=== PATIENT | female | born 1955 | race Caucasian/White ===

== ENCOUNTER 2017-10-02 11:17 | Inpatient (IN) | payer OTHER ==
[~2017-10-02] VITALS: Ht 167.6 cm; Wt 49.4 kg
[2017-10-02 12:38] LABS: BASOPHILS # (AUTO) 0.1 K/uL (0.0-8.0); BASOPHILS % (AUTO) 2.2 % (0.0-2.0); EOSINOPHILS # (AUTO) 0.2 K/uL (0.0-0.7); EOSINOPHILS % (AUTO) 2.9 % (0.0-7.0); HEMATOCRIT 40.2 % (31.2-41.9); HEMOGLOBIN 13.1 g/dL (10.9-14.3); LYMPHOCYTES # (AUTO) 1.9 K/uL (20.0-40.0); LYMPHOCYTES % (AUTO) 29.7 % (20.5-51.5); MEAN CORPUSCULAR HEMOGLOBIN 28.8 uug (24.7-32.8); MEAN CORPUSCULAR HGB CONC 33 g/dL (32.3-35.6); MEAN CORPUSCULAR VOLUME 88.2 fL (75.5-95.3); MONOCYTES # (AUTO) 0.5 K/uL (2.0-10.0); MONOCYTES % (AUTO) 8.5 % (0.0-11.0); NEUTROPHILS # (AUTO) 3.6 K/uL (1.8-8.9); NEUTROPHILS % (AUTO) 56.7 % (38.5-71.5); PLATELET COUNT (AUTO) 226 K/uL (179-408); RED BLOOD CELL COUNT(AUTO) 4.56 MIL/uL (3.63-4.92); WHITE BLOOD COUNT (AUTO) 6.4 K/uL (3.8-11.8)
[2017-10-02 12:52] LABS: CARBON DIOXIDE 29 mmol/L (21-32); CHLORIDE 110 mmol/L (98-107); CREATININE 0.8 mg/dL (0.6-1.3); GLUCOSE 85 mg/dL (74-106); POTASSIUM 4.1 mmol/L (3.5-5.1); UREA NITROGEN, BLOOD 15 mg/dL (7-18)
[2017-10-02 12:56] LABS: ACETAMINOPHEN < 2.0 ug/mL (10-30); ALANINE AMINOTRANSFERASE 26 U/L (14-59); ALKALINE PHOSPHATASE 139 U/L (50-136); ASPARTATE AMINOTRANSFERASE 24 U/L (15-37); BILIRUBIN,DIRECT 0.1 mg/dL (0.0-0.2); BILIRUBIN,TOTAL 0.6 mg/dL (0.2-1.0); TOTAL PROTEIN, SERUM 6.5 g/dL (6.4-8.2)
[2017-10-02 13:13] LABS: ETHANOL < 3 MG/DL (0-0)
[2017-10-02 14:00] LABS: *BILIRUBIN,URIN NEGATIVE (NEGATIVE); *BLOOD, URINE NEGATIVE (NEGATIVE); *CLARITY,URINE CLEAR (CLEAR); *COLOR,URINE YELLOW (YELLOW); *KETONES,URINE NEGATIVE (NEGATIVE); *PROTEIN,URINE NEGATIVE (NEGATIVE); *UROBILINOGEN,URINE 0.2 E.U./dl (NORMAL); LEUKOCYTE ESTERASE ,URINE TRACE (NEGATIVE); NITRITE, URINE NEGATIVE (NEGATIVE); UGLUCOSE NEGATIVE (NEGATIVE)
[2017-10-02 14:02] LABS: BACTERIA,URINE NONE SEEN /HPF (NONE SEEN); RBC,URINE 0-3 /HPF (0-3); SQUAMOUS EPITHELIAL CELL,UR FEW /HPF (NONE SEEN); WBC,URINE 0-3 /HPF (0-3)
--- NOTE | 2017-10-02 14:08 | NUR ---
LEVON COPMPLETED, SBAR REPORT TO SANTOS RN-MHU, MRSA-NARES ORDERED-SENT. PT TRANSPORTED VIA [facility] TO RM 140B.
[2017-10-02 14:12] LABS: *AMPHETAMINE, URINE NEGATIVE (NEGATIVE); *BARBITURATE, URINE NEGATIVE (NEGATIVE); *CANNABINOID, URINE POSITIVE (NEGATIVE); *COCCAINE, URINE NEGATIVE (NEGATIVE); *OPIATE, URINE NEGATIVE (NEGATIVE); *PHENCYCLIDINE SCREEN,URINE NEGATIVE (NEGATIVE)
[2017-10-02] MEDS ORDERED: MAG HYDROX/AL HYDROX/SIMETH 30 ML LIQUID UDC PO PRN (14:45)
[2017-10-02] MEDS ORDERED: MAGNESIUM HYDROXIDE 30 ML LIQUID UDC PO PRN (14:45)
[2017-10-02] MEDS ORDERED: TEMAZEPAM 7.5 MG CAPSULE PO PRN (14:45)
--- NOTE | 2017-10-02 15:00 | NUR ---
1410 ADMITTED A 62 YEAR OLD FROM ER PER KAYKAY A FEMALE , ALERT AND OX2. PATIENT PLACED ON 5150 FOR DTS;DTO AND GD . PATIENT JIMENA ONE OF THE PUBLIC AND THREW BATTERIES ON HER. ALSO PATIENT TALKING TO SELF AND CLAIMED THAT SHE IS A WITCH. UPON ARRIVAL OF THE UNIT, PATIENT VERY ANGRY ,YELLING AND UNCOOPERATIVE WHEN QUESTIONS ASKED. REFUSED TO ANSWERS QUESTIONS AND REFUSED TO BE BODY CHECK FOR ANY SKIN PROBLEM. PATIENT VERY UNTIDY AND MALODOROUS- ASSISTED FOR SHOWER AND FRESH GOWN PROVIDED. PATIENT WENT TO HER ROOM AND LYING IN BED. V/S TAKEN WNL. PSYCHIATRIST NOTIFIED ABOUT THE ADMISSION WITH ORDERS CARRIED OUT.
[2017-10-02 15:35] VITALS: BP 138/82
[2017-10-03 07:11] LABS: BILIRUBIN,TOTAL 0.4 mg/dL (0.2-1.0); CREATININE 0.8 mg/dL (0.6-1.3); POTASSIUM 3.8 mmol/L (3.5-5.1); TOTAL PROTEIN, SERUM 6.4 g/dL (6.4-8.2)
[2017-10-03 07:30] VITALS: BP 116/78
[2017-10-03] MEDS ORDERED: diphenhydrAMINE 50 MG/1 ML VIAL IM STA (07:50)
[2017-10-03] MEDS ORDERED: HALOPERIDOL LACTATE 5 MG/1 ML VIAL IM STA (07:50)
[2017-10-03] MEDS ORDERED: LORAZEPAM 2 MG/1 ML VIAL IM STA (07:50)
--- NOTE | 2017-10-03 08:10 | NUR ---
PATIENT WAS NOTED YELLING, SCREAMING, CURSING, BELLIGERENT, BOTHERING AND SCARING PATIENT IN THE UNIT, UNABLE TO BE REDIRECTED AND UNABLE TO CFS. DR BENNETT WAS NOTIFY AND NEW ORDERS OBTAINED TO ADMINISTER ATIVAN 2MG IM, HALDOL 5MG IM; AND BENADRYL 25MG IM. STAT ONE TIME ORDERS. ORDERS NOTED AND CARRIED OUT. WILL CONTINUE TO MONITOR CLOSELY.
[2017-10-03 08:16] LABS: THYROID STIMULATING HORMONE 1.796 mIU/mL (0.358-3.740)
[2017-10-03] MEDS: HALOPERIDOL 5 MG TABLET PO SCH ×3 (09:00→16:50)
[2017-10-03] MEDS: BENZTROPINE MESYLATE 1 MG TABLET PO SCH ×3 (09:00→16:50)
[2017-10-03 15:20] VITALS: BP 86/56
--- NOTE | 2017-10-03 18:32 | NUR ---
patient has been sleeping all shift arousable for meals no outburts or interaction , still guarded and delusional
--- NOTE | 2017-10-03 20:00 | NUR ---
RECEIVED PATIENT IN HER ROOM IN BED ASLEEP. SHE IS AROUSABLE TO NAME AND LIGHT TOUCH. HOWEVER PT REFUSED TO ANSWER ANY QUESTION AND REFUSED ASSESSMENT. PT DOES NOT HAVE ANY SCHEDULED QHS MEDICATIONS. SAFETY WAS EMPHASIS WILL CONTINUE TO MONITOR CLOSELY.
--- NOTE | 2017-10-03 20:05 | NUR ---
PATIENT REFUSED VITAL SIGNS. MULTIPLE REDIRECTION GIVEN, YET INEFFECTIVE. WILL CONTINUE TO MONITOR CLOSELY.
--- NOTE | 2017-10-04 04:15 | NUR ---
PATIENT GOT UP TO GO TO THE BATHROOM YELLING AND CURSING, SHE THEN SLAMMED THE BATHROOM DOOR AND CONTINUE CURSING, "MF, WHAT ARE YOU LOOKING AT, YOU ALL MF". PATIENT WAS REDIRECTED AND WHEN BACK TO BED. WILL CONTINUE TO MONITOR CLOSELY.
--- NOTE | 2017-10-04 07:00 | NUR ---
RECEIVED PATIENT ON BED, AWAKE. WHEN APPROACHED WILL BEGIN CURSING AND YELLING AT STAFF. RESTLESSNESS AND AGITATION NOTED. NON COMPLIANT WITH MEDICATION PER CHURCH MUSICIAN. HAS A TENDENCY TO BE COMBATIVE. SAFETY PRECAUTIONS OBSERVED AT ALLTIMES. COMFORT MEASURES PROVIDED. WILL CONTINUE TO MONITOR CLOSELY.
[2017-10-04 07:30] VITALS: BP 118/78
[2017-10-04] MEDS: HALOPERIDOL 5 MG TABLET PO SCH ×3 (08:40→17:01)
[2017-10-04] MEDS: LORAZEPAM 1 MG TABLET PO PRN (08:40)
[2017-10-04] MEDS: BENZTROPINE MESYLATE 1 MG TABLET PO SCH ×3 (08:40→17:01)
[2017-10-04] MEDS: diphenhydrAMINE 50 MG/1 ML VIAL IM ONE ×2 (09:23→09:37)
[2017-10-04] MEDS: LORAZEPAM 2 MG/1 ML VIAL IM ONE ×2 (09:23→09:37)
[2017-10-04] MEDS: HALOPERIDOL LACTATE 5 MG/1 ML VIAL IM ONE ×2 (09:23→09:37)
--- NOTE | 2017-10-04 09:38 | NUR ---
ATIVAN 2MG INJ/BENADRYL 25MG INJ/ HALDOL INJ WAS WASTED BECAUSE ALL 3 MEDICATIONS WERE MIXED IN ONE SYRINGE, CALLED PHARMACY, SAID THAT ATIVAN AND BENADRYL WERE NOT COMPATIBLE. MEDICATIONS NOT GIVEN, WILL ENTER NEW ORDER.
[2017-10-04] MEDS ORDERED: diphenhydrAMINE 50 MG/1 ML VIAL IM ONE (09:45)
[2017-10-04] MEDS ORDERED: LORAZEPAM 2 MG/1 ML VIAL IM ONE (09:45)
[2017-10-04] MEDS ORDERED: HALOPERIDOL LACTATE 5 MG/1 ML VIAL IM ONE (09:45)
--- NOTE | 2017-10-04 10:15 | NUR ---
PATIENT WAS NOTED YELLING AND CURSING AT STAFF, THROWING THINGS IN ROOM. UNABLE TO REDIRECT PATIENT, CONTINUES TO YELL AND CURSE. NOTIFIED MD, OBTAINED ORDERS TO ADMINISTER ATIVAN 2MG IM, HALDOL 5MG IM; AND BENADRYL 25MG IM. STAT ONE TIME ORDERS. ORDERS NOTED AND CARRIED OUT. IM SHOT GIVEN ON RIGHT BUTTOCK, WELL TOLERATED, NO ADVERSE REACTIONS NOTED. WILL CONTINUE TO MONITOR CLOSELY
--- NOTE | 2017-10-04 10:29 | NUR ---
UR Note: JAVON faxed patient's clinicals to PAU Moncada [[phone] FAX [phone]] at [facility]. Awaiting authorization. JAVON will continue to follow up.
[2017-10-04 14:37] VITALS: BP 98/62
--- NOTE | 2017-10-04 15:45 | NUR ---
UR Note: JAVON spoke with PAU Rosado at [facility] [[phone]] who stated patient has been authorized through 10/06. JAVON will follow up with Ashlee on 10/06 for review.
--- NOTE | 2017-10-04 17:35 | NUR ---
OFFERED 1700 MEDICATION; HALDOL AND CONGENTIN, PATIENT REFUSED TO TAKE IT AND BEGAN CURSING AND YELLING, "GET THE FUCK OUT OF HERE, I DON'T TAKE ANY MEDICATIONS" THEN WENT BACK TO SLEEP. WILL CONTINUE TO MONITOR CLOSELY
--- NOTE | 2017-10-04 17:50 | NUR ---
PATIENT IN ROOM EATING DINNER, NO ACUTE DISTRESS NOTED. PATIENT BECOMES HOSTILE; YELLING AND CURSING, WHEN APPROACHED. REFUSED 1700 MEDICATION. DIFFICULT TO REDIRECT NON COMPLIANT WITH CARE AT THIS TIME. ALL NEEDS ATTENDED AND ANTICIPATED. WILL CONTINUE TO MONITOR
--- NOTE | 2017-10-04 18:15 | NUR ---
reoffered 1700 medication; congentin and haldol, with Dr. Craft. Patient took medication. will continue to monitor closely.
[2017-10-04 20:00] VITALS: BP 94/57
--- NOTE | 2017-10-04 22:04 | NUR ---
RECEIVED Pt IN BED SLEEPING, REQUIRED MULTIPLE EFFORTS TO WAKE UP Pt. Pt WAS A/O TO NAME BUT REFUSED TO ANSWER OTHER QUESTIONS DURING ASSESSMENT. Pt WAS EASILY AGITATED AND AND DID NOT WANT TO SPEAK TO NURSE. Pt DENIED S/I, UNABLE TO HAVE Pt AGREE TO CFS DUE TO INCREASED AGITATION AND REFUSAL TO ANSWER FURTHER QUESTIONS. Pt WENT BACK TO SLEEP, NO DISTRESS NOTED BY NURSE.
[2017-10-05] MEDS: LORAZEPAM 1 MG TABLET PO PRN ×2 (00:05→23:41)
[2017-10-05] MEDS: ACETAMINOPHEN 325 MG TABLET PO PRN ×2 (00:05→23:46)
--- NOTE | 2017-10-05 00:25 | NUR ---
Pt WOKE UP AT AROUND 2300 AND WENT TO DAY ROOM. NURSE FOLLOWED TO DO MORE THROUGH ASSESSMENT. Pt IS A/O X 2, NOT TO TIME OR EVENT. Pt WAS ABLE TO HOLD CONVERSATION WITH NURSE BUT WAS TANGENTIAL IN SPEECH AND PRESENTED DELUSIONS. Pt WAS NOTED SAYING, "I DON'T HAVE FAMILY BUT I HAVE FRIENDS WHO ARE SATAN WORSHIPPERS." Pt BEGAN ACCUSING OTHER PATIENTS AND NURSE OF BEING SATAN WORSHIPPERS. NOTED ANXIETY AND RESTLESSNESS. Pt WAS OFFERED SNACKS BY NURSE TO HELP HER CALM DOWN. Pt WAS OFFERED AND GIVEN ATIVAN AND TYLENOL PRN AFTERWARDS. Pt CONTINUED TO STAY IN DAY ROOM TO WATCH TV AFTER FINISHING HER SNACKS BUT WENT BACK TO BED IMMEDIATELY. NO FURTHER AGGRESSIVE BEHAVIORS NOTED SO FAR.
--- NOTE | 2017-10-05 07:00 | NUR ---
RECEIVED REPORT FROM PILE DRIVER OPERATOR BARGE MOUNTED. PATIENT IN DAY ROOM, NO ACUTE DISTRESS NOTED. PER PILE DRIVER OPERATOR BARGE MOUNTED, PATIENT CONTINUES TO BE DELUSIONAL TALKING TO OTHER PATIENTS ABOUT "SATAN RASTAFARIAN", ATIVAN AND TYLENOL PRN WAS GIVEN LAST NIGHT BY ERIC ALEMAN. PATIENT SLEPT THOROUGH THE NIGHT. COMPLIANT WITH MEDICATIONS. COMFORT MEASURES PROVIDED. WILL CONTINUE TO MONITOR CLOSELY.
[2017-10-05 08:00] VITALS: BP 101/72
[2017-10-05] MEDS: HALOPERIDOL 5 MG TABLET PO SCH ×4 (08:06→20:14)
[2017-10-05] MEDS: BENZTROPINE MESYLATE 1 MG TABLET PO SCH ×4 (08:06→20:14)
--- NOTE | 2017-10-05 11:12 | NUR ---
PATIENT NOTED TO BE COUGHING A LOT, INFORMED DR. ELAINE, AWAITING RESPONSE. WILL CONTINUE TO MONITOR CLOSELY.
[2017-10-05] MEDS ORDERED: GUAIFENESIN SUGAR FREE 100 MG/5 ML UDC PO PRN (11:30)
--- NOTE | 2017-10-05 15:48 | NUR ---
Initial DC Plan: Patient is currently homeless and states she does not have any income. She has no family or friends to contact. SW will follow up with MD and patient to discuss most appropriate discharge plans. Patient will be provided a substance abuse intervention. SW will form a safe and proper discharge.
--- NOTE | 2017-10-05 16:07 | NUR ---
Firearms Reporting: JAVON submitted Mental Health Report to [facility] on 10/05.
[2017-10-05 16:20] VITALS: BP 109/69
--- NOTE | 2017-10-05 17:53 | NUR ---
PATIENT IN DAY ROOM EATING DINNER. NO ACUTE DISTRESS NOTED. EPISODE OF YELLING/AGITATION X 1, DR. BENNETT AWARE. OTHERWISE HAS BEEN COMPLIANT WITH MEDICATION. ALL NEEDS ATTENDED AND ANTICIPATED. WILL CONTINUE TO MONITOR CLOSELY.
[2017-10-05 20:00] VITALS: BP 117/72
--- NOTE | 2017-10-05 23:42 | NUR ---
GPS: PATIENT C/O ANXIETY. ATIVAN 1 MG PO GIVEN.
--- NOTE | 2017-10-05 23:46 | NUR ---
GPS: PATIENT C/O GEN: PAIN. [id number] MG PO GIVEN. PO
--- NOTE | 2017-10-06 00:42 | NUR ---
GPS: PATIENT IS CALM NOW. PRN EFFECTIVE FOR ANXIETY.
--- NOTE | 2017-10-06 00:46 | NUR ---
GPS: PATIENT IS RESTING QUIETLY. PRN EFFECTIVE FOR PAIN.
--- NOTE | 2017-10-06 06:33 | NUR ---
GPS: remain cooperative with medications and care. patient noted talking to her self.showered this morning. anxiety x1 through the night prn given and effective. slept 4:30 hrs through the night. assisted with adl's.continue plan of care.
[2017-10-06 07:30] VITALS: BP 100/65
--- NOTE | 2017-10-06 07:30 | NUR ---
RECEIVED REPORT FROM DRAWING TENDER. PATIENT IN DAY ROOM, NO ACUTE DISTRESS NOTED. , PATIENT CONTINUES TO BE DELUSIONAL TALKING TO OTHER PATIENTS ABOUT "SATAN ORTHODOX", PT. COMPLIANT WITH MEDICATIONS. COMFORT MEASURES PROVIDED. WILL CONTINUE TO MONITOR CLOSELY.
[2017-10-06] MEDS: HALOPERIDOL 5 MG TABLET PO SCH ×3 (08:12→21:14)
[2017-10-06] MEDS: BENZTROPINE MESYLATE 1 MG TABLET PO SCH ×3 (08:12→21:14)
--- NOTE | 2017-10-06 10:31 | NUR ---
UR Note: JAVON spoke with PAU Rosado at [facility] [[phone]] who stated patient has been authorized through 10/09. JAVON will follow up with Ashlee on 10/09 for review.
[2017-10-06 14:58] VITALS: BP 119/69
[2017-10-06 20:01] VITALS: BP 99/65
--- NOTE | 2017-10-06 21:40 | NUR ---
RECEIVED Pt IN DAY ROOM WATCHING TV, REFUSED TO ANSWER MANY QUESTIONS AND BECAME AGITATED WHEN NURSE WAS TRYING TO ADMINISTER NIGHT MEDS. AFTER MANY ENCOURAGEMENT, Pt ANGRILY TOOK MEDS AND TOLD NURSE TO "GET THE FUCK OUT OF MY FACE AND LEAVE!" WILL MONITOR Pt BEHAVIOR CLOSELY THROUGHOUT THE SHIFT.
[2017-10-07 07:30] VITALS: BP 106/65
--- NOTE | 2017-10-07 07:30 | NUR ---
Shift report given by nightshift RN. Pt in fair condition. Noted with agitation and verbally aggressive behavior during noc shift. In bed at this time, asleep but easily arousable to name. Appears comfortable. No acute distress noted. Will continue to monitor for change.
[2017-10-07] MEDS: BENZTROPINE MESYLATE 1 MG TABLET PO SCH ×3 (08:40→21:04)
[2017-10-07] MEDS: HALOPERIDOL 5 MG TABLET PO SCH ×3 (08:40→21:04)
[2017-10-07 16:41] VITALS: BP 98/71
--- NOTE | 2017-10-07 18:21 | NUR ---
Pt remained in fair condition during shift. Continues to be isolative at times. Attends activities of choice but does not interact with peers. Irritable when approached. Denies SI/HI, CFS. Denies pain. Took all due meds. Afebrile. Able to provide self care without prompting needed. Continent of B&B with BRP. All needs met at this time. Will continue to monitor for change.
[2017-10-07 20:30] VITALS: BP 107/51
--- NOTE | 2017-10-08 02:32 | NUR ---
Received in dayroom watching TV at beginning of shift. Compliant with meds. No signs of agitation or restlessness at that time. Back in the room and fall asleep. Denies any pain nor any discomfort. Isolative. No behavioral issues noted so far. Will monitor patient. Making needs known. Continent of bowel and bladder.
[2017-10-08 07:30] VITALS: BP 110/68
--- NOTE | 2017-10-08 07:30 | NUR ---
GPS: Shift report given by nightshift RN. No significant change in condition during noc shift. Rec'd pt awake, watching television in the dayroom. In no acute distress noted. Denies pain. Pt stated her night was fine. All needs met at this time. Will continue to monitor for change.
[2017-10-08] MEDS: BENZTROPINE MESYLATE 1 MG TABLET PO SCH ×3 (08:14→20:19)
[2017-10-08] MEDS: HALOPERIDOL 5 MG TABLET PO SCH ×3 (08:15→20:19)
[2017-10-08 15:35] VITALS: BP 104/69
[2017-10-08] MEDS: LORAZEPAM 1 MG TABLET PO PRN (16:40)
[2017-10-08] MEDS: ACETAMINOPHEN 325 MG TABLET PO PRN (16:40)
[2017-10-08 22:22] VITALS: BP 116/72
--- NOTE | 2017-10-09 06:08 | NUR ---
GPS: REMAIN CALM AND COOPERATIVE WITH MEDICATIONS AND CARE. NO AGITATION NOTED AT THIS TIME. AMBULATE WITH STEADY GAIT.ABLE TO CARE HER SELF.SLEPT 6 HRS THROUGH THE NIGHT. CONTINUE PLAN OF CARE.
--- NOTE | 2017-10-09 07:18 | NUR ---
GPS: Shift report given by nightshift RN. Pt without significant change in condition during noc shift. Rec'd pt awake, in the dayroom watching TV. Does not appear to be responding to internal stimuli. In no acute distress noted. Will continue to monitor for change.
[2017-10-09 07:30] VITALS: BP 99/66
[2017-10-09] MEDS: BENZTROPINE MESYLATE 1 MG TABLET PO SCH ×4 (08:21→20:15)
[2017-10-09] MEDS: HALOPERIDOL 5 MG TABLET PO SCH ×4 (08:21→20:15)
--- NOTE | 2017-10-09 14:41 | NUR ---
UR Note: JAVON faxed patient's clinicals to PAU Moncada [[phone] FAX [phone]] at [facility]. Awaiting authorization. JAVON will continue to follow up.
[2017-10-09 15:35] VITALS: BP 113/71
--- NOTE | 2017-10-09 18:25 | NUR ---
GPS: Pt remained in fair condition during shift. No significant change in condition noted. Pt continues to respond to internal stimuli. Refused noon medications. Pt with delusion that meds were just given to her 5mins prior to offering it to her. Attempted to reorient and offer meds x3 but became more agitated with each attempt. Denies pain. In no acute distress noted. Will continue to monitor for change.
[2017-10-09 20:23] VITALS: BP 119/74
[2017-10-09] MEDS: LORAZEPAM 1 MG TABLET PO PRN (21:10)
--- NOTE | 2017-10-09 22:10 | NUR ---
RECEIVED Pt IN DAY ROOM WATCHING TV, RESPONDS TO NAME BUT FORGETFUL AND TANGENTIAL IN SPEECH, UNABLE TO PROPERLY HOLD CONVERSATION AND KEEPS CHANGING TOPIC WHEN TALKING. Pt WAS COMPLIANT WITH NIGHT MEDS. Pt WAS NOTED ANXIOUS AND YELLING AT INANIMATE OBJECTS. WAS OFFERED AND GIVEN ATIVAN PO PRN FOR ANXIETY AND AGITATION. WILL CLOSELY MONITOR Pt BEHAVIOR THROUGHOUT SHIFT.
--- NOTE | 2017-10-10 06:48 | NUR ---
Pt SLEPT WELL THROUGHOUT THE NIGHT, NO NOTED DISTRESS, NO AGGRESSIVE BEHAVIOR NOTED. Pt IS NOW AWAKE AND WATCHING TV IN THE DAY ROOM. IN STABLE CONDITION.
[2017-10-10 07:30] VITALS: BP 94/63
[2017-10-10] MEDS: LORAZEPAM 1 MG TABLET PO PRN (07:59)
[2017-10-10] MEDS: BENZTROPINE MESYLATE 1 MG TABLET PO SCH ×3 (07:59→20:17)
[2017-10-10] MEDS: HALOPERIDOL 5 MG TABLET PO SCH ×3 (08:00→20:17)
[2017-10-10 15:27] VITALS: BP 113/78
--- NOTE | 2017-10-10 20:30 | NUR ---
RECEIVED PATIENT IN HER ROOM; HOWEVER, SHE WAS ALSO NOTED PACING THE HALLWAY. SHE IS NOTED A/O X 1, POOR INSIGHT, POOR JUDGMENT, WITHDRAWN, LOW MOOD. UPON INTERVIEW, SHE STATED, "I DON'T WANT TO TALK NOW". PATIENT IS COMPLIANT WITH MEDICATION REGIMENT AT THIS TIME. NO AGGRESSIVE BX NOTED. WILL CONTINUE TO MONITOR CLOSELY.
[2017-10-10 20:58] VITALS: BP 111/66
[2017-10-11 07:30] VITALS: BP 101/65
--- NOTE | 2017-10-11 07:58 | NUR ---
UR Note: JAVON faxed patient's clinicals to PAU Moncada [[phone] FAX [phone]] at [facility]. Awaiting authorization. JAVON will continue to follow up.
--- NOTE | 2017-10-11 08:00 | NUR ---
PATIENT REMAINS CONFUSED AND DISORIENTED EXPRESSING WANTING TO TO THE STREETS . LETHARGIC AFTER PACING HALLWAYS AND IN DAY ROOM AT TIMES CONTINUE TO MONITOR FOR SAFETY
[2017-10-11] MEDS: HALOPERIDOL 5 MG TABLET PO SCH ×3 (09:00→20:51)
[2017-10-11] MEDS: LORAZEPAM 1 MG TABLET PO PRN (10:09)
[2017-10-11] MEDS: BENZTROPINE MESYLATE 1 MG TABLET PO SCH ×3 (10:10→20:52)
[2017-10-11 14:53] VITALS: BP 120/76
[2017-10-11 20:00] VITALS: BP 114/78
--- NOTE | 2017-10-11 20:30 | NUR ---
RECEIVED PATIENT IN HER ROOM; HOWEVER, SHE WAS ALSO NOTED PACING THE HALLWAY. SHE GOES BACK AND FORT FROM HER ROOM TO THE DAY ROOM. SHE IS NOTED A/O X 2, POOR INSIGHT, POOR JUDGMENT, WITHDRAWN, LOW MOOD. UPON INTERVIEW, SHE IS NOTED DELUSIONAL, FLIGHT OF IDEAS, DENIES SI/HO. PATIENT IS COMPLIANT WITH MEDICATION REGIMENT AT THIS TIME. NO AGGRESSIVE BX NOTED. WILL CONTINUE TO MONITOR CLOSELY.
--- NOTE | 2017-10-12 06:26 | NUR ---
PATIENT SLEPT FOR APPROX 2.30 HRS THROUGH THE NIGHT. SHE REFUSED "SLEEPING PILL LAST NIGHT. SHE WAS NOTED PACING THE HALLWAY FEW TIMES THROUGH THE NIGHT; HOWEVER, SHE WAS CALM, COOPERATIVE AND REDIRECTABLE. WILL CONTINUE TO MONITOR.
[2017-10-12 07:30] VITALS: BP 107/71
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
[2017-10-12] MEDS: BENZTROPINE MESYLATE 1 MG TABLET PO SCH ×3 (08:39→21:13)
[2017-10-12] MEDS: HALOPERIDOL 5 MG TABLET PO SCH ×3 (08:40→21:13)
--- NOTE | 2017-10-12 08:44 | NUR ---
PATIENT IS AWAKE IN ROOM AND BED. PATIENT IS COMPLIANT IN TAKING MEDICATIONS.
--- NOTE | 2017-10-12 10:16 | NUR ---
Supervisor Cutting And Boning: JAVON received a call from APS worker Brandon [[phone]] who stated she will not be assigning the case at this time. Brandon asked JAVON to follow up when a discharge date is set for patient.
--- NOTE | 2017-10-12 11:46 | NUR ---
UR Note: JAVON received a voicemail from Ashlee at [facility] [[phone]] who stated patient is authorized through Monday 10/16. Next review due 10/16. JAVON will follow up with CM.
[2017-10-12 15:29] VITALS: BP 104/62
--- NOTE | 2017-10-12 20:00 | NUR ---
RECEIVED PT. PACING IN THE HALLWAY, WALKING BACK & FORT FROM HER ROOM TO THE TV ROOM. ALERT & ORIENTED X2. PT. IS TALKING LESS BUT REDIRECTED.
[2017-10-12 21:09] VITALS: BP 102/61
--- NOTE | 2017-10-13 05:57 | NUR ---
pt. slept approx 3.5hrs. remains pacing back & fort from to the tv room to her room.. redirect pt. on & off.
[2017-10-13 07:30] VITALS: BP 109/76
--- NOTE | 2017-10-13 07:48 | NUR ---
PATIENT IS PACING IN THE HALLWAY.
[2017-10-13] MEDS: BENZTROPINE MESYLATE 1 MG TABLET PO SCH ×3 (08:47→20:43)
[2017-10-13] MEDS: HALOPERIDOL 5 MG TABLET PO SCH ×3 (08:47→20:43)
[2017-10-13] MEDS: LORAZEPAM 1 MG TABLET PO PRN (12:24)
--- NOTE | 2017-10-13 12:24 | NUR ---
PATIENT BECAME UPSET AND AGITATED WHEN SHE HAD TO BE ASKED OUT OF ACTIVITY ROOM DUE TO ANOTHER PATIENT ACTING OUT. PATIENT AGITATED AT THIS TIME. GIVEN PRN MEDICATION
[2017-10-13 15:00] VITALS: BP 113/83
[2017-10-13 20:00] VITALS: BP 105/65
--- NOTE | 2017-10-14 06:26 | NUR ---
GPS: REMAIN CALM AND COOPERATIVE. PLEASANT WITH STAFF. NO AGITATION NOTED THROUGH THE SHIFT.SLEPT 7 HRS THROUGH OUT THE NIGHT.CONTINUE PLAN OF CARE.
[2017-10-14 07:30] VITALS: BP 98/69
[2017-10-14] MEDS: BENZTROPINE MESYLATE 1 MG TABLET PO SCH ×3 (08:10→20:17)
[2017-10-14] MEDS: HALOPERIDOL 5 MG TABLET PO SCH ×3 (08:10→20:17)
[2017-10-14] MEDS: LORAZEPAM 1 MG TABLET PO PRN (15:21)
--- NOTE | 2017-10-14 15:21 | NUR ---
PT IS COMBATIVE AND YELLING SCREAMING ON THE OTHER PT ,ATIVAN 1MG PO GIVEN PER MD ORDERS
[2017-10-14 16:18] VITALS: BP 105/71
[2017-10-14 19:48] VITALS: BP 102/68
--- NOTE | 2017-10-15 06:32 | NUR ---
GPS; patient remained calm and cooperative with medications and care. no behavior problem noted.slept 6 hrs through the night.
[2017-10-15 07:56] VITALS: BP 109/61
[2017-10-15] MEDS: HALOPERIDOL 5 MG TABLET PO SCH ×3 (08:05→21:05)
[2017-10-15] MEDS: BENZTROPINE MESYLATE 1 MG TABLET PO SCH ×3 (08:05→21:05)
[2017-10-15 16:34] VITALS: BP 100/64
--- NOTE | 2017-10-15 20:30 | NUR ---
RECEIVED PATIENT IN HER ROOM, SHE IS NOTED A/O 1 (NAME ONLY) SHE IS ABLE TO AMBULATE WITH STEADY GAIT AND ABLE TO MAKE HER NEEDS KNOWN. SHE IS NOTED RESTLESS (PACING THE HALLWAY, SITTING IN THE DAY ROOM FOR FEW MINUTES, THEN BACK IN HER ROOM FOR FEW MINUTES THEN BACK IN THE DAY ROOM. UPON INTERVIEW, SHE IS NOTED EASILY IRRITABLE SAYING "DON'T ASK ME ANY QUESTION." PATIENT IS ABLE TO COMPLY WITH [facility] MEDICATION REGIMENT ANT THIS TIME. SAFETY EMPHASIS. WILL CONTINUE TO MONITOR.
--- NOTE | 2017-10-16 07:19 | NUR ---
PATIENT SLEPT FOR APPROX 3.30HRS THROUGH THE NIGHT.
[2017-10-16 07:30] VITALS: BP 111/79
--- NOTE | 2017-10-16 07:30 | NUR ---
RECEIVED PATIENT IN HER ROOM, SHE IS NOTED A/O 1 (NAME ONLY) SHE IS ABLE TO AMBULATE WITH STEADY GAIT AND ABLE TO MAKE HER NEEDS KNOWN. SITTING IN THE DAY ROOM FOR FEW MINUTE UPON INTERVIEW, SHE IS NOTED EASILY IRRITABLE SAYING "DON'T ASK ME ANY QUESTION." PATIENT IS ABLE TO COMPLY WITH MEDICATION REGIMENT ANT THIS TIME. SAFETY EMPHASIS. WILL CONTINUE TO MONITOR.
[2017-10-16] MEDS: HALOPERIDOL 5 MG TABLET PO SCH ×2 (08:13→12:02)
[2017-10-16] MEDS: BENZTROPINE MESYLATE 1 MG TABLET PO SCH ×2 (08:13→12:02)
--- NOTE | 2017-10-16 12:56 | NUR ---
DC Note: Patient chose to be discharged without retirement placement, and has stated she will use public transportation. She has completed and signed the homeless patient waiver form. SW was unable to verify if patient has financial income in the bank. Patient is alert and oriented x2, and denies suicidal and homicidal ideation. Patient refused to be discharged to a homeless retirement, however was still provided with a homeless resource packet. Homeless resource packet includes a list of emergency shelters, housing resources, drop in centers, and showers and hot meals centers. This resource packet also included the Homeless Information Hotline (424)-723-4464 or 211, [facility] [phone])- [phone], and the [facility] ([phone]. Patient plans to follow up with her primary care physician Dr. Owen Isidro [[id number] [place] [address]; ]. Patient was provided a list of referrals for outpatient psychiatrists including: Dr. Wallace [[phone]], Dr. Crane [[phone], and Dr. Wallace [[phone]]. Patient was provided with additional outpatient mental health resources to [facility] Crisis Line , Nichelle Carnes , and the National Suicide Prevention Lifeline . Patient was provided substance abuse referrals for [facility] [ ], [facility] [ ], and [facility] [ ]. Patient was encouraged to present at [facility] on 10/17 at 9am for intake. SW notified patient's APS worker Grace [[phone]] of discharge plans.
--- NOTE | 2017-10-16 14:16 | NUR ---
D/C ORDERS RECEIVED NOTED AND CARRIED OUT,OFFER THE PT [facility] PT REFUSED TO GO TO THE [facility] MD MADE AWARE,PT IS AXOX2 PROPERLY DRESSED ,D.C INSTRUCTION GIVEN TO THE PT ,AND LIST OF MEDICAL OFFICES PROVIDE THE PT.PT SAID SHE WILL FOLLOW UP WITH THOSE CLINIC ,PT LEFT THE FACILITY VIA WALKING OUT BY HER SELF IN STABLE CONDITION
== END 2017-10-16 14:30 | disposition home or self-care (01) | DRG 885 ==
LOC: ER 11:17 → GPS 14:00 → ER 14:11
PROVIDERS: ADMIT Psychiatry & Neurology Psychiatry; ATTEND Internal Medicine
DX: F20.0 Paranoid schizophrenia (principal); E43 Unspecified severe protein-calorie malnutrition; Z68.1 Body mass index [BMI] 19.9 or less, adult; Z59.0 Homelessness; F12.10 Cannabis abuse, uncomplicated; F32.9 Major depressive disorder, single episode, unspecified
CPT/HCPCS: 36415; 71045; 80307; 84443; 85025; 93005; A4663; G0480; G0480-TC; J1200; J1630; J2060